=== PATIENT | female | born 1935 | race Caucasian/White ===

== ENCOUNTER → 2016-04-19 | Outpatient (CLI) | payer MEDICARE, OTHER, MEDICAID ==
[~2016-04-19] MED LIST: ALBUTEROL2.5 MG/3 M INH; ALDACTONE25 MG PO; ATIVAN0.5 MG PO; CALCIUM CARBON600 MG PO; CEROVITE ADVANC1 TAB PO; COREG25 MG PO; DURAGESIC25 MCG TOP; ELIQUIS2.5 MG PO; LASIX20 MG PO; LEXAPRO10 MG PO; LISINOPRIL40 MG PO; LORAZEPAM0.5 MG PO; NEURONTIN400 MG PO; NORCO 325-5 MG1 TAB PO; PRILOSEC20 MG PO; TYLENOL325 MG PO; ULTRAM50 MG PO; ZOFRAN4 MG PO
== END | disposition short-term general hospital (02) ==
LOC: CLCARD 09:15
DX: I50.20 Unspecified systolic (congestive) heart failure (principal)

== ENCOUNTER → 2016-05-03 | Outpatient (CLI) | payer MEDICARE, OTHER, MEDICAID | END | disposition short-term general hospital (02) | LOC: CLCARD 12:54 | DX: I13.0 Hypertensive heart and chronic kidney disease with heart failure and stage 1 through stage 4 chronic kidney disease, or unspecified chronic kidney disease (principal); N18.4 Chronic kidney disease, stage 4 (severe); I50.22 Chronic systolic (congestive) heart failure; I48.1 Persistent atrial fibrillation; I25.10 Atherosclerotic heart disease of native coronary artery without angina pectoris ==

== ENCOUNTER → 2016-07-05 | Outpatient (CLI) | payer MEDICARE, OTHER, MEDICAID | END | disposition short-term general hospital (02) | LOC: CLCARD 10:18 | DX: I13.0 Hypertensive heart and chronic kidney disease with heart failure and stage 1 through stage 4 chronic kidney disease, or unspecified chronic kidney disease (principal); I50.22 Chronic systolic (congestive) heart failure; I50.1 Left ventricular failure, unspecified; I42.9 Cardiomyopathy, unspecified; N18.4 Chronic kidney disease, stage 4 (severe); I25.10 Atherosclerotic heart disease of native coronary artery without angina pectoris; I48.2 Chronic atrial fibrillation; I34.0 Nonrheumatic mitral (valve) insufficiency; I35.0 Nonrheumatic aortic (valve) stenosis ==

== ENCOUNTER → 2016-08-05 | Outpatient (CLI) | payer MEDICARE, OTHER, MEDICAID | END | disposition short-term general hospital (02) | LOC: CLNEPH 13:08 | DX: I13.0 Hypertensive heart and chronic kidney disease with heart failure and stage 1 through stage 4 chronic kidney disease, or unspecified chronic kidney disease (principal); I50.22 Chronic systolic (congestive) heart failure; N18.4 Chronic kidney disease, stage 4 (severe); R60.1 Generalized edema ==